=== PATIENT | male | born 1950 | race Caucasian/White ===

== ENCOUNTER 2020-06-13 13:44 | Emergency (ER) | payer MEDICARE ==
--- NOTE | 2020-06-13 14:33 | EDM.PDOC ---
ED HPI GENERAL MEDICAL PROBLEM - General Chief Complaint: ENT Problem Stated Complaint: HEARING AID BATTERY LOST IN EAR Time Seen by Provider: 06/13/20 14:28 Source of Information: Reports: Patient, RN History Limitations: Reports: No Limitations - History of Present Illness INITIAL COMMENTS - FREE TEXT/NARRATIVE: 70 yo male [place] presents with a portion of his R hearing aid stuck in his ear. Onset: Today, Sudden Onset Date: 06/13/20 Duration: Minutes: Location: Reports: Head (R ear) Quality: Reports: Dull Severity: Mild Improves with: Reports: None Worsens with: Reports: None Context: Reports: Other (See HPI) Associated Symptoms: Reports: No Other Symptoms Treatments DEPARTMENT OF SOCIOLOGY CHAIR: Reports: Other (see below) (none) - Related Data Allergies Allergy/AdvReac Type Severity Reaction Status Date / Time No Known Allergies Allergy Verified 06/13/20 14:16 Home Meds: Home Meds Metoprolol Succinate [Toprol XL] 5 mg PO BID 06/13/20 [History] atorvaSTATin [Lipitor] 80 mg PO BEDTIME 06/13/20 [History] lisinopriL [Lisinopril] 20 mg PO DAILY 06/13/20 [History] Past Medical History HEENT History: Reports: Hard of Hearing, Impaired Vision Cardiovascular History: Reports: High Cholesterol, Hypertension, [place], Stents Genitourinary History: Reports: Retention, Urinary - Past Surgical History Head Surgeries/Procedures: Reports: None HEENT Surgical History: Reports: None Cardiovascular Surgical History: Reports: Coronary Artery Stent Dermatological Surgical History: Reports: None Social & Family History - Tobacco Use Tobacco Use Status *Q: Current Every Day Tobacco User Years of Tobacco use: 55 Packs/Tins Daily: 0.5 Used Tobacco, but Quit: No Second Hand Smoke Exposure: Yes - Caffeine Use Caffeine Use: Reports: Coffee - Recreational Drug Use Recreational Drug Use: No ED ROS ENT - Review of Systems Review Of Systems: Comprehensive ROS is negative, except as noted in HPI. Constitutional: Reports: No Symptoms HEENT: Reports: Hearing Loss, Other (reports hearing aid stuck in R ear) Skin: Reports: No Symptoms Neurological: Reports: No Symptoms ED EXAM, ENT - Physical Exam Exam: See Below Exam Limited By: No Limitations General Appearance: Alert, WD/WN, No Apparent Distress Ears: Canal Foreign Body (on right), Cerumen Impaction ED ENT PROCEDURES - Additional/Other Procedure(s) Other (Free Text) Procedure(s): the portion of his hearing aid that is stuck in his R ext auditory canal was extracted with a bayonet forceps. Departure - Departure Time of Disposition: 14:31 Disposition: Home, Self-Care 01 Condition: Good Clinical Impression: Foreign body of ear, right Qualifiers: Encounter type: initial encounter Qualified Code(s): T16.1XXA - Foreign body in right ear, initial encounter Impacted cerumen Qualifiers: Laterality: right Qualified Code(s): H61.21 - Impacted cerumen, right ear - Discharge Information *PRESCRIPTION DRUG MONITORING PROGRAM REVIEWED*: No *COPY OF PRESCRIPTION DRUG MONITORING REPORT IN PATIENT RAQUEL: No Referrals: PCP,None [Primary Care Provider] - Additional Instructions: Use Debrox in your ears at night after your hearing aids are removed. Recheck as needed.
== END 2020-06-13 14:38 | disposition home or self-care (01) ==
LOC: JP.ED 13:44
DX: T16.1XXA Foreign body in right ear, initial encounter (principal); H61.21 Impacted cerumen, right ear; E78.00 Pure hypercholesterolemia, unspecified; I10 Essential (primary) hypertension; I25.2 Old myocardial infarction; F17.210 Nicotine dependence, cigarettes, uncomplicated; Z95.5 Presence of coronary angioplasty implant and graft; Z79.899 Other long term (current) drug therapy
CPT/HCPCS: 69200; 99282-25